=== PATIENT | female | born 1995 | race Caucasian/White ===

== ENCOUNTER 2023-02-24 22:09 | Emergency (ER) | payer OTHER ==
[~2023-02-24] VITALS: Ht 149.9 cm; Wt 54.4 kg
[2023-02-24 22:15] VITALS: BP 112/69
--- NOTE | 2023-02-24 22:18 | NUR ---
TO LOBBY A/W BED AMBULATORY
--- NOTE | 2023-02-24 22:38 | NUR ---
PT TO BED #6
--- NOTE | 2023-02-24 22:39 | NUR ---
XRAY AT BEDSIDE
[2023-02-24] MEDS ORDERED: ALBUTEROL 0.083% 2.5 MG/3 ML NEBU INH ONE (22:50)
--- NOTE | 2023-02-24 22:50 | NUR ---
PT UP TO BATHROOM WITH STEADY GAIT.
[2023-02-24 22:51] LABS: BASOPHILS % (AUTO) 0.4 % (0.0-2.0); EOSINOPHILS # (AUTO) 0.4 K/uL (0-0.4); EOSINOPHILS % (AUTO) 4.1 % (0.0-4.0); HEMOGLOBIN 13.7 g/dL (12.0-16.0); LYMPHOCYTES # (AUTO) 2.6 K/uL (2.5-16.5); LYMPHOCYTES % (AUTO) 28.9 % (20.5-51.1); MEAN CORPUSCULAR HEMOGLOBIN 30 pg (27-31); MEAN CORPUSCULAR HGB CONC 34 g/dL (33-37); MEAN CORPUSCULAR VOLUME 90.3 fL (80-94); MONOCYTES # (AUTO) 0.6 K/uL (0.8-1.0); MONOCYTES % (AUTO) 6.4 % (1.7-9.3); NEUTROPHILS # (AUTO) 5.5 K/uL (1.8-7.7); NEUTROPHILS % (AUTO) 60.2 % (42.2-75.2); PLATELET COUNT (AUTO) 247 K/uL (140-450); RED BLOOD CELL COUNT(AUTO) 4.54 MIL/uL (4.20-5.40); RED CELL DISTRIBUTION WIDTH 13.4 % (11.6-13.7); WHITE BLOOD COUNT (AUTO) 9.1 K/uL (4.8-10.8)
--- NOTE | 2023-02-24 23:10 | NUR ---
RT AT BEDSIDE
[2023-02-24 23:16] LABS: ALBUMIN 3.9 g/dL (3.4-5.0); ANION GAP 10.1 (8-16); ASPARTATE AMINOTRANSFERASE 15 U/L (15-37); CARBON DIOXIDE 30.5 mmol/L (21-32); CHLORIDE 105 mmol/L (98-107); CREATININE 0.9 mg/dL (0.6-1.3); GFR ARICAN-AMERICAN 97 mL/min (>90); GLUCOSE 127 mg/dL (74-106); POTASSIUM 3.6 mmol/L (3.5-5.1); SODIUM SERUM 142 mmol/L (136-145); TOTAL BILIRUBIN 0.1 mg/dL (0.0-1.0); UREA NITROGEN, BLOOD 16 mg/dL (7-18)
--- NOTE | 2023-02-24 23:28 | NUR ---
27YR OLD FEMALE BIB SELF C/O SOB CP. PT HX OF ASTHMA. +WHEEZING SHARP PRESSURE LIKE PAIN IN CHEST. NON RADIATING. 5/10 PAIN. RESP EVEN AND UNLABORED. 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 SP02 95% 2L NC. SKIN WARM AND DRY. NKDA ASTHMA
[2023-02-24] MEDS ORDERED: PRED20TA5 PO (23:35)
[2023-02-24] MEDS ORDERED: ALBU0.0912 IH (23:35)
[2023-02-24 23:46] VITALS: BP 108/75
--- NOTE | 2023-02-24 23:46 | NUR ---
Patient discharged with v/s stable. Written and verbal after care instructions given and explained. Patient verbalized understanding. Ambulatory with steady gait. All questions addressed prior to discharge. Advised to follow up with PMD.
--- NOTE | 2023-02-25 00:02 | NUR ---
The patient's care was reviewed and supervised by Ashley Priest RN.
== END 2023-02-24 23:46 | disposition home or self-care (01) ==
LOC: MED 22:09
DX: J45.901 Unspecified asthma with (acute) exacerbation (principal); J06.9 Acute upper respiratory infection, unspecified; F12.90 Cannabis use, unspecified, uncomplicated; Z79.899 Other long term (current) drug therapy
CPT/HCPCS: 36415; 71045; 80053; 81025; 84484; 85025; 85379; 93005; 94640; 94760; 99285; J7613; Q0092